=== PATIENT | female | born 1950 | race Caucasian/White ===

== ENCOUNTER 2018-06-17 18:01 | Observation (INO) ==
--- NOTE | 2018-06-17 18:37 | Emergency Department Note ---
Disposition Clinical Impression: TIA (transient ischemic attack) Chest pain Qualifiers: Chest pain type: unspecified Qualified Code(s): R07.9 - Chest pain, unspecified Disposition: Admitted As Inpatient Time of Disposition: 20:43 Neuro HPI - General Chief Complaint: ED Neuro Symptoms/Deficit Stated Complaint: unsteady gait (TIA Sunday) Time Seen by Provider: 06/17/18 18:25 Source: patient Mode of arrival: ambulatory Limitations: no limitations Nursing Notes Reviewed: Yes Vital Signs Reviewed: Yes - History of Present Illness HPI Narrative: Patient is a 68-year-old female with past medical history of TIAs in the past, no residual deficits, hypertension, diabetes. She presents here due to concern for possible TIA. She states that on Sunday, approximately 2 days ago, she had an episode of expressive aphasia. states that she had garbled speech and appeared to be confused. However, when he came to the patient and [place], she was able to communicate appropriately. She said that she had these symptoms for about 3 hours and then they resolved. She did not come to the hospital for further evaluation. denied noticing any focal weakness, facial drooping during that episode. Patient herself denied any changes in vision during that episode. She is not had any further episodes like this since Sunday. However, she does state that she has felt off balance with ambulation and swathe side to side when trying to walk since that episode. She also has had intermittent chest pain for the past 1-2 days. She states that yesterday, she developed chest pain that was described as a right-sided aching, no radiation, worsened with exertion, lasted for a few hours and then went away. She did not take any medications during that time. She also states that when she woke up this point, she had a right-sided chest pain again. It lasted for a few hours and then went away. Described similarly as above. She denies any previous history of heart attack or stent placement. She does have a pacemaker placed. - Related Data Allergies/Adverse Reactions: Allergies Allergy/AdvReac Type Severity Reaction Status Date / Time No Known Allergies Allergy Unverified 04/20/18 14:21 All systems ED: reviewed and negative except as stated. Constitutional: Denies: fever Cardiovascular: Reports: chest pain Respiratory: Reports: dyspnea Gastrointestinal: Denies: abdominal pain, nausea, vomiting, diarrhea Genitourinary: Denies: urgency, dysuria Neurological: Reports: other. Denies: headache, weakness, numbness, paresthesias Past Medical History - Past Medical History Attestation: Yes The following information was validated with the patient. Source: patient Medical history: Reports: diabetes, hypertension - Social History Smoking Status: Never smoker Smokeless Tobacco Status: No Alcohol use: Reports: none Physical Exam - General Limitations: no limitations General appearance: alert, in no apparent distress - Head Head exam: atraumatic, normocephalic, normal inspection - Eye Eye exam: Present: normal appearance, PERRL, EOMI - ENT ENT exam: normal exam, normal oropharynx, mucous membranes moist - Neck Neck exam: Present: normal inspection, full ROM, trachea midline - Chest Chest inspection: Present: normal inspection, symmetric chest wall rise - Respiratory Respiratory exam: Present: normal lung sounds bilaterally - Cardiovascular Cardiovascular exam: Present: regular rate, normal rhythm, normal heart sounds - Abdominal Exam Abdominal exam: Present: soft, Non-Tender. Absent: tenderness, distention, guarding, rebound, rigidity - Extremities Exam Extremities exam: Present: normal inspection, full ROM. Absent: tenderness, pedal edema - Neurological Exam Neurological exam: Present: alert, oriented X3, CN II-XII intact. Absent: motor sensory deficit - Expanded Neurological Exam Patient oriented to: Present: person, place, time Speech: Present: fluid speech Cranial nerves: EOM function (II, III, IV, ): Normal, facial sensation (V): Normal, facial palsy (VII): Normal, spinal accessory function (XI): Normal, tongue deviation (XII): Normal Cerebellar function: finger to nose: Normal Motor strength - LUE: 5/5 Motor strength - RUE: 5/5 Motor strength - LLE: 5/5 Motor strength - RLE: 5/5 Sensory exam upper extremity: light touch: Normal Sensory exam lower extremity: light touch: Normal Coma Scale Eye Opening: Spontaneous Coma Scale Motor Response: Obeys Commands Coma Scale Verbal Response: Oriented Coma Scale Total: 15 - Psychiatric Psychiatric exam: Present: normal affect, normal mood - Skin Skin exam: Present: warm, dry, intact, normal color Course Course Narrative: Vitals within normal limits. Physical exam shows no focal neurologic deficits. Heart regular rate and rhythm, lungs clear to auscultation, abdomen soft and nontender. Discuss obtaining a CT of the head noncontrast, basic blood work, troponin, EKG. Regardless of imaging, patient will need to be admitted for further stroke workup. She is to have an MRI but would probably benefit from Dopplers or CTA of the head and neck. She is agreeable with this plan. 20:41 EKG showed normal sinus rhythm with no acute ST changes. Troponin negative. labs show no major abnormalities. Chest x-ray negative for any acute cardio pulmonary process. Head CT negative for any acute intracranial process. Results were discussed with patient. We will admit for further care and workup for both TIA and chest pain. Aspirin given. Chest X-Ray 06/17/18 18:48 IMPRESSION: No acute cardiopulmonary abnormality. D/ / J Luis Hein MD / J Luis Hein MD Interpreting Provider: J Luis Hein MD Head CT 06/17/18 18:49 IMPRESSION: No acute intracranial abnormality. Periventricular and subcortical white matter low attenuation compatible with chronic microvascular ischemic changes. D/ / J Luis Hein MD / J Luis Hein MD Interpreting Provider: J Luis Hein MD Vital Signs Temperature 98.2 F 06/17/18 18:05 Pulse Rate 92 06/17/18 18:05 Respiratory Rate 15 06/17/18 18:05 Blood Pressure 148/70 06/17/18 18:05 O2 Sat by Pulse Oximetry 99 06/17/18 18:05 Temperature 98.2 F 06/17/18 18:45 Pulse Rate 80 06/17/18 20:40 Respiratory Rate 17 06/17/18 20:40 Blood Pressure 134/66 06/17/18 20:40 O2 Sat by Pulse Oximetry 99 06/17/18 20:40 Oxygen Delivery Oxygen Delivery Room Air Neuro Symptoms/Deficit - MDM Narrative Medical decision making narrative: Vitals within normal limits. Physical exam shows no focal neurologic deficits. Heart regular rate and rhythm, lungs clear to auscultation, abdomen soft and nontender. Discuss obtaining a CT of the head noncontrast, basic blood work, troponin, EKG. Regardless of imaging, patient will need to be admitted for further stroke workup. She is to have an MRI but would probably benefit from Dopplers or CTA of the head and neck. She is agreeable with this plan. 20:41 EKG showed normal sinus rhythm with no acute ST changes. Troponin negative. labs show no major abnormalities. Chest x-ray negative for any acute cardio pulmonary process. Head CT negative for any acute intracranial process. Results were discussed with patient. We will admit for further care and workup for both TIA and chest pain. Aspirin given. - Medical Records Medical records reviewed: Yes I reviewed the patient's medical records. - Lab Data Lab results reviewed: Yes I reviewed the patient's lab results. Result diagrams: 06/17/18 19:03 06/17/18 19:03 Lab Results 06/17/18 06/17/18 06/17/18 Range/Units 19:03 19:03 19:03 WBC 9.6 (4.3-11.1) K/mcL RBC 4.07 (3.82-4.97) M/mcL Hgb 12.4 (11.5-15.4) g/dL Hct 36.2 (35.3-44.9) % MCV 88.9 (83.0-100.0) fL MCH 30.5 (28.0-33.3) pg MCHC 34.3 (31.6-35.5) g/dL RDW 13.8 (11.5-14.5) % Plt Count 219 (140-400) K/mcL MPV 9.1 L (9.4-12.4) fL Immature Gran % 0.4 (0-4) % Seg Neutrophils % 58.9 % Lymphocytes % 26.6 % Monocytes % 9.4 % Eosinophils % 4.3 % Basophils % 0.4 % Neutrophils # 5.6 (1.6-8.9) K/mcL Lymphocytes # 2.6 (0.6-4.6) K/mcL Monocytes # 0.9 (0.0-1.3) K/mcL Eosinophils # 0.4 (0.0-0.6) K/mcL Basophils # 0.0 (0.0-0.2) K/mcL PT 11.1 (9.4-12.1) Seconds INR 1.0 APTT 28.4 (26.0-36.0) Seconds Sodium 139 (136-145) mEq/L Potassium 3.7 (3.5-5.1) mEq/L Chloride 105 (98-107) mEq/L Carbon Dioxide 24 (23-29) mEq/L BUN 16 (8-23) mg/dL Creatinine 0.78 (0.60-1.20) mg/dL Est GFR ( Amer) > 60 (> 60) Est GFR (Non-Af Amer) > 60 (> 60) BUN/Creatinine Ratio 21 (6-26) Glucose 154 H (70-105) mg/dL Calculated Osmolality 292 (280-300) Calcium 9.5 (8.6-10.3) mg/dL Total Bilirubin 0.4 (0.3-1.0) mg/dL AST 16 (13-39) Units/L ALT 14 (7-52) Units/L Alkaline Phosphatase 94 (34-104) Units/L Troponin I < 0.03 (< 0.04) ng/mL Serum Total Protein 6.3 L (6.4-8.9) g/dL Albumin 3.8 (3.5-5.7) g/dL Globulin 2.5 (2.4-3.5) g/dL Albumin/Globulin Ratio 1.5 (1.1-2.2) Urine Color (Yellow) Urine Clarity (Clear) Urine pH (5.0-8.0) pH Units Ur Specific [place] (1.010-1.025) Urine Protein (Neg-Trace) mg/dL Urine Glucose (UA) (Normal) mg/dL Urine Ketones (Negative) mg/dL Urine Blood (Negative) Urine Nitrite (Negative) Urine Bilirubin (Negative) Urine Urobilinogen (Normal) mg/dL Ur Leukocyte Esterase (Negative) Ur Culture Indicated? (NO) 06/17/18 Range/Units 20:29 WBC (4.3-11.1) K/mcL RBC (3.82-4.97) M/mcL Hgb (11.5-15.4) g/dL Hct (35.3-44.9) % MCV (83.0-100.0) fL MCH (28.0-33.3) pg MCHC (31.6-35.5) g/dL RDW (11.5-14.5) % Plt Count (140-400) K/mcL MPV (9.4-12.4) fL Immature Gran % (0-4) % Seg Neutrophils % % Lymphocytes % % Monocytes % % Eosinophils % % Basophils % % Neutrophils # (1.6-8.9) K/mcL Lymphocytes # (0.6-4.6) K/mcL Monocytes # (0.0-1.3) K/mcL Eosinophils # (0.0-0.6) K/mcL Basophils # (0.0-0.2) K/mcL PT (9.4-12.1) Seconds INR APTT (26.0-36.0) Seconds Sodium (136-145) mEq/L Potassium (3.5-5.1) mEq/L Chloride (98-107) mEq/L Carbon Dioxide (23-29) mEq/L BUN (8-23) mg/dL Creatinine (0.60-1.20) mg/dL Est GFR ( Amer) (> 60) Est GFR (Non-Af Amer) (> 60) BUN/Creatinine Ratio (6-26) Glucose (70-105) mg/dL Calculated Osmolality (280-300) Calcium (8.6-10.3) mg/dL Total Bilirubin (0.3-1.0) mg/dL AST (13-39) Units/L ALT (7-52) Units/L Alkaline Phosphatase (34-104) Units/L Troponin I (< 0.04) ng/mL Serum Total Protein (6.4-8.9) g/dL Albumin (3.5-5.7) g/dL Globulin (2.4-3.5) g/dL Albumin/Globulin Ratio (1.1-2.2) Urine Color Yellow (Yellow) Urine Clarity Clear (Clear) Urine pH 6.5 (5.0-8.0) pH Units Ur Specific [place] 1.007 L (1.010-1.025) Urine Protein Negative (Neg-Trace) mg/dL Urine Glucose (UA) Normal (Normal) mg/dL Urine Ketones Negative (Negative) mg/dL Urine Blood Negative (Negative) Urine Nitrite Negative (Negative) Urine Bilirubin Negative (Negative) Urine Urobilinogen Normal (Normal) mg/dL Ur Leukocyte Esterase Negative (Negative) Ur Culture Indicated? NO (NO) - Radiology Data Radiology results reviewed: Yes I reviewed the patient's radiology results. - EKG Data EKG attestation: Yes I reviewed and interpreted this EKG. EKG results narrative: 06/17/20 1818:42. Normal sinus rhythm. Heart rate 82. MA 145. QRS 91. QTC 463. Normal axis. No acute ST elevation or depression. NIH Stroke Scale - Level of Consciousness LOC: Alert - LOC Questions LOC Questions: Answers both correctly - LOC Commands LOC Commands: Performs both correctly - Best Gaze Best Gaze: Normal - Visual Visual: No visual loss - Facial Palsy Facial Palsy: Normal - Motor Arms Motor Arm-Left: No drift for 10 seconds Motor Arm-Right: No drift for 10 seconds - Motor Legs Motor Leg-Left: No drift for 5 seconds Motor Leg-Right: No drift for 5 seconds - Limb Ataxia Limb Ataxia: Absent of affected limb too weak to perform exam - Sensory Sensory: Normal - Best Language Best Language: No aphasia - Dysarthria Dysarthria: Normal - Extinction and Inattention Extinction and Inattention: Normal - NIHSS Total Score NIHSS Total Score: 0 S.B.A.R. - S.B.A.R. Situation: Demographics, MOA Background: Presenting Complaint, Relevant PMH, Meds, & Allergies Assessment: Vital Signs, Course and respsone to treatment, Exam Concerns, Patient/Family Expectation, Pertinant Lab Results, Outstanding Labs (pending UA) Recommendation: Barrier(s) to disposition, Recommendation based on pending studies, treatments, or consults S.B.A.R. Report Given to: Dr. Alva Attestation Statement - Attestation Attestation: I, Gelacio Ferrera, examined this patient and my medical decision-making was reviewed with the COLLEGE INSTRUCTOR/PA/Advanced Practice Nurse/Resident Physician. I agree with the documented findings, disposition and treatment plan as described except to the extent set forth below. 68-year-old female presents emergency Department with concerns of an unsteady gait. Patient states she had an episode of expressive aphasia and chest pain over the weekend. Patient states the expressive aphasia resolved after a time of 3 hours however she then developed difficulty with ambulation. The difficulty with ambulation persisted and her primary care provider recommended she be evaluated in the emergency department. Patient states the chest pain was located in the center of her chest, did not radiate, was not associated with diaphoresis or shortness of breath or palpitations. No pain in the emergency department. CT of the head did not show evidence of intracranial hemorrhage however it showed changes consistent with chronic microvascular ischemia. There are no focal neurologic deficits noted on her exam. She will be admitted to the hospitalist for further care and evaluation of possible CVA as well as for further investigation into her chest pain.
[2018-06-17 20:00] LABS: Basophils % 0.4 %; Eosinophils # 0.4 K/mcL (0.0-0.6); Eosinophils % 4.3 %; Hematocrit 36.2 % (35.3-44.9); Hemoglobin 12.4 g/dL (11.5-15.4); Immature Granulocytes % 0.4 % (0-4); Lymphocytes # 2.6 K/mcL (0.6-4.6); Lymphocytes % 26.6 %; Mean Corpuscular HGB Conc 34.3 g/dL (31.6-35.5); Mean Corpuscular Hemoglobin 30.5 pg (28.0-33.3); Mean Corpuscular Volume 88.9 fL (83.0-100.0); Mean Platelet Volume 9.1 fL (9.4-12.4); Monocytes # 0.9 K/mcL (0.0-1.3); Monocytes % 9.4 %; Neutrophils # 5.6 K/mcL (1.6-8.9); Platelet Count 219 K/mcL (140-400); Red Blood Count 4.07 M/mcL (3.82-4.97); Red Cell Distribution Width 13.8 % (11.5-14.5); Segmented Neutrophils % 58.9 %
[2018-06-17 20:15] LABS: Prothrombin Time 11.1 Seconds (9.4-12.1)
[2018-06-17 20:19] LABS: Activated Partial Thrombo Time 28.4 Seconds (26.0-36.0)
[2018-06-17 20:20] LABS: Troponin I < 0.03 ng/mL (< 0.04)
[2018-06-17 20:21] LABS: Alanine Aminotransferase 14 Units/L (7-52); Albumin 3.8 g/dL (3.5-5.7); Albumin/Globulin Ratio 1.5 (1.1-2.2); Alkaline Phosphatase 94 Units/L (34-104); Aspartate Amino Transferase 16 Units/L (13-39); BUN/Creatinine Ratio 21 (6-26); Bilirubin,Total 0.4 mg/dL (0.3-1.0); Blood Urea Nitrogen 16 mg/dL (8-23); Calcium 9.5 mg/dL (8.6-10.3); Carbon Dioxide 24 mEq/L (23-29); Chloride 105 mEq/L (98-107); Globulin 2.5 g/dL (2.4-3.5); Glucose 154 mg/dL (70-105); Osmolality,Calculated 292 (280-300); Potassium 3.7 mEq/L (3.5-5.1); Sodium 139 mEq/L (136-145); Total Protein 6.3 g/dL (6.4-8.9); eGFR For Non-African Americans > 60 (> 60)
[2018-06-17 20:42] LABS: Bilirubin,Urine Negative (Negative); Blood,Urine Negative (Negative); Clarity,Urine Clear (Clear); Color,Urine Yellow (Yellow); Glucose,Urine (UA) Normal (Normal); Ketones,Urine Negative (Negative); Leukocyte Esterase,Urine Negative (Negative); Nitrite,Urine Negative (Negative); PH,Urine 6.5 pH Units (5.0-8.0); Protein,Urine Negative (Neg-Trace); Specific Gravity,Urine 1.007 (1.010-1.025); Urobilinogen,Urine Normal (Normal)
[2018-06-17] MEDS ORDERED: Aspirin 325 MG TABLET PO ONE (20:42)
[2018-06-18] MEDS ORDERED: Naloxone 0.4 MG/ML INJ IVP PRN (09:19)
[2018-06-18] MEDS ORDERED: Nitroglycerin Spray 4.9 GM BOTTLE SL PRN (09:21)
[2018-06-18] MEDS ORDERED: Metoprolol XL (24 HR) Succ 25 MG TAB.ER.24H PO SCH ×2 (09:45→22:30)
--- NOTE | 2018-06-18 10:10 | Internal Med History&Physical ---
Date of Encounter: 06/18/18 Time of Encounter: 10:07 Internal Medicine - H&P: HPI Chief complaint: Difficulty speaking and intermittent unsteady gait Plans for Post Hospital Care: Home History of present illness: Ms. Smith is a 68 year old female with a past medical history of pacemaker, multiple TIAs in the past, coronary artery disease status post 8 stents in the past with a history of prior strokes who comes in with TIA type symptoms which occurred roughly about 3 days ago. The patient states that she was in her usual health and started having symptoms consistent with word finding difficulty which lasted for roughly 3 hours roughly 3 days ago and resolved completely by the time she presented to the ER. She did mention that she has been having some difficulty in walking and has been swelling to one particular direction for the last few days as well-this symptom is also completely resolved at this time. She tells me that she was evaluated by neurology several years ago and was found to have multiple strokes in her brain and since then she has been on aspirin. She also has been on brillinta since she had her cardiac issues in the last year and a half and see the cart attendant in [place] for the same. She denies any headaches or dizziness at this time. All her symptoms are currently gone but she is very concerned about recurrence of strokes and wants management done. She also endorsed intermittent chest pain on the right side which was graded as 5/10 sharp described as possible pulled muscle which has currently resolved. There was no exertional component that she endorses with the chest pain. She denies any shortness of breath at this time. No fevers no chills no sick contacts Past Med Surg Social Fam HX - Past Medical History Medical history: asthma, coronary artery disease, diabetes, fibromyalgia, hypertension, TIA Additional medical history: thyroid disease Psychiatric history: anxiety, depression - Past Surgical History Surgical History: cholecystectomy, coronary bypass (CABG), hysterectomy - Social History Smoking Status: Never smoker Smokeless Tobacco Status: No Alcohol use: none Drug use: none - Family History Father Living Status: Hx Family Cancer: Yes Mother Living Status: Hx Family Cardiac Disorders: Yes Brother Hx Family Cardiac Disorders: Yes Internal Medicine - H&P: Meds ALPRAZolam [Xanax 0.5 MG Tablet] 0.5 mg PO TID PRN 06/17/18 [History] Albuterol Sulfate [Proair Hfa] 2 puff IH Q4H PRN 06/17/18 [History] Aspirin Enteric Coated [Aspirin EC] 81 mg PO DAILY 06/17/18 [History] Calcium Carbonate/Vitamin D3 [[place] 250 mg + Vit D Tb] 1 tab PO DAILY [History] Cholecalciferol (D-3) [Vitamin D] 2,000 unit PO DAILY 06/17/18 [History] Cyclobenzaprine [Flexeril] 5 mg PO BID PRN 06/17/18 [History] Docusate [Colace] 100 mg PO BID 06/17/18 [History] Fluticasone/Salmeterol [Advair Hfa 115-21 Mcg Inhaler] 1 puff IH BID 06/17/18 [ History] Furosemide [Lasix] 40 mg PO DAILY 06/17/18 [History] Gabapentin [Neurontin] 300 mg PO TID 06/17/18 [History] HYDROcodone/Acet 10/325 mg [[place] 10-325 mg] 1 tab PO QID PRN 06/17/18 [History] Ibandronate Sodium [Boniva] 150 mg PO QMONTH 06/17/18 [History] Levothyroxine [Synthroid] 100 mcg PO 0630 06/17/18 [History] Losartan/Hydrochlorothiazide [Losartan-Hctz 50-12.5 mg Tab] 1 tab PO DAILY 06/17 [History] Meloxicam [Mobic] 15 mg PO DAILY 06/17/18 [History] Metoprolol Succinate [Toprol Xl] 25 mg PO DAILY 06/17/18 [History] Multivitamin [One Daily Essential] 1 tab PO DAILY 06/17/18 [History] Nitroglycerin [Nitrolingual] 4.9 gm TL Q5MIN PRN 06/17/18 [History] [place]-3 Fatty Acids [Fish Oil] 300 mg PO DAILY 06/17/18 [History] Omeprazole [PriLOSEC] 40 mg PO DAILY 06/17/18 [History] Potassium Chloride 20 meq PO DAILY 06/17/18 [History] Ropinirole HCl [Requip] 0.5 mg PO BID 06/17/18 [History] Simvastatin [Zocor] 40 mg PO HS 06/17/18 [History] Ticagrelor [Brilinta] 90 mg PO BID 06/17/18 [History] Trazodone HCl 150 mg PO HS 06/17/18 [History] Venlafaxine HCl [Venlafaxine HCl ER] 150 mg PO DAILY 06/17/18 [History] hydrOXYzine HCl [Hydroxyzine HCl] 25 mg PO QID PRN 06/17/18 [History] 3 Allergy/AdvReac Type Severity Reaction Status Date / Time No Known Allergies Allergy Verified 06/17/18 20:55 All Systems PM: A 10-system review of systems was performed and is negative for pertinent findings except as documented above in the HPI. - Constitutional Vitals: Temp Pulse Resp BP Pulse Ox 98.3 F 87 16 128/75 99 06/18/18 07:04 06/18/18 07:04 06/18/18 07:04 06/18/18 07:04 06/18/18 07:04 Exam: GENERAL: Alert, moderate distress, cooperative EYES: PERRLA, EOMI EARS: External ears normal, canals clear OROPHARYNX: Lips, mucosa, and tongue normal. Teeth and gums normal. Oropharynx normal. NECK: No jugulovenous distention, No carotid bruits appreciated on auscultation , Carotid pulse normal contour, Supple LUNGS: Lungs clear to auscultation, Good diaphragmatic excursion CARDIAC: Midline scar consistent with prior heart surgery, Normal S1 and S2; no rubs, murmurs, or gallops, pacemaker site is nontender ABDOMEN: Abdomen soft, non-tender, BS normal, No masses or organomegaly EXTREMITIES: Extremities normal, no deformities, edema, clubbing or skin discoloration. Good capillary refill., No ulcers NEURO: Gait normal. Reflexes normal and symmetric. Sensation grossly intact, Cranial nerves II-XII intact PULSES: 2+ radial, 2+ carotid Rest of the exam is non contributory Internal Med - H&P Results - Labs CBC & Chem 7: 06/17/18 19:03 06/17/18 19:03 - Diagnostic Studies CT scan - head Status: image reviewed by me (Chronic microvascular ischemic changes) - Assessment and plan (1) TIA (transient ischemic attack) Current Visit: Yes Status: Acute Assessment and plan: Patient has had prior history of stroke with imaging evidence of chronic microvascular ischemic changes. She is already on aspirin and will in type and has been taking statins without any break. Her symptoms are concerning for TIA and I will check an echo and carotid duplex again. She does not get a carotid duplex 2 years ago was negative for any critical stenosis Her pacemaker is non-compatible with an MRI and would have been the best modality to diagnose new strokes. I am going to consult neurology for their opinion regarding what imaging modality to choose Continue beta blockers and statins for now and monitor neuro checks every 4-6 hours. She will also be placed on telemetry monitoring. She also tells me that her pacemaker was evaluated roughly about a year ago and everything was good. (2) Chest pain Current Visit: Yes Status: Acute Assessment and plan: Sounds like non-cardiac. For completion of workup , I will place on telemetry monitoring and check serial troponins. Initial EKG is nonsuggestive of ischemic changes Qualifiers: Chest pain type: intercostal pain Qualified Code(s): R07.82 - Intercostal pain - Time Spent With Patient Total time spent is greater than 50% in coordination of care (as documented) at patient's floor/unit and/or counseling patient: Greater than 35 minutes
[2018-06-18] MEDS: Furosemide 40 MG TABLET PO SCH (10:32)
[2018-06-18] MEDS: Aspirin Enteric Coated 81 MG Tablet PO SCH (10:32)
[2018-06-18] MEDS: Losartan/HCTZ 50-12.5 TABLET PO SCH (10:32)
[2018-06-18] MEDS: Gabapentin 300 MG CAPSULE PO SCH ×3 (10:32→21:35)
[2018-06-18] MEDS: *HR* Ticagrelor 90 MG TABLET PO SCH ×2 (10:33→21:35)
[2018-06-18] MEDS: Venlafaxine XR (24 HR) 150 MG CAP.ER.24H PO SCH (10:33)
[2018-06-18] MEDS: rOPINIRole 0.25 MG TABLET PO SCH ×2 (10:35→21:35)
[2018-06-18] MEDS: ALPRAZolam 0.5 MG TABLET PO PRN ×2 (10:43→21:35)
[2018-06-18] MEDS ORDERED: Isovue-370 500 ML INFUS..BTL IV ONE (12:36)
--- NOTE | 2018-06-18 13:31 | Neurology - Consult Note ---
Date of Encounter: 06/18/18 Time of Encounter: 13:28 Assessment and Plan (1) TIA (transient ischemic attack) Current Visit: Yes Status: Acute This patient of 68 year old with multiple risk factors especially CAD, s/p multiple stent placement, HTN obesity who developed transient speech difficulty lasting 3 hours in duration with total resolution. Is already on Aspirin and Ticargrelor dual antiplatelet therapy. Can not get MRI scanning due to pacer placement. Agree with stroke work up including CTA of neck and neck, echocardiography and carotid artery duplex study. This is so far only episode of such presentation, although she has had 'blank movements' in the past. Will follow up with testing once available for review. Please continue medical and supportive care History of Present Illness Chief complaint: speech difficulty HPI: Ms. Smith is a 68 year old female with PMH significant for HTN, DM, obesity, CAD, s/p stent placement, pacer placement and previous history of TIAs who developed transient speech difficulty lasting about 3 hours. The spell was witnessed by her who states that it was not just slurred speech but she could not speak. Symptoms lasted 3 hours and then totally resolved. She states that she has had TIA's before only that she goes into a blank for few seconds but nothing like what she had yesterday. She has pace maker and could not get MRI. She is on Aspirin and Ticargrelor. Initial CT of head showed no intracranial abnormality. Past Med Surg Social Fam HX - Past Medical History Medical history: asthma, coronary artery disease, diabetes, fibromyalgia, hypertension, TIA Additional medical history: thyroid disease Psychiatric history: anxiety, depression - Past Surgical History Surgical History: cholecystectomy, coronary bypass (CABG), hysterectomy - Social History Smoking Status: Never smoker Smokeless Tobacco Status: No Alcohol use: none Drug use: none - Family History Father Living Status: Hx Family Cancer: Yes Mother Living Status: Hx Family Cardiac Disorders: Yes Brother Hx Family Cardiac Disorders: Yes Medications and Allergies ALPRAZolam [Xanax 0.5 MG Tablet] 0.5 mg PO TID PRN 06/17/18 [History] Albuterol Sulfate [Proair Hfa] 2 puff IH Q4H PRN 06/17/18 [History] Aspirin Enteric Coated [Aspirin EC] 81 mg PO DAILY 06/17/18 [History] Calcium Carbonate/Vitamin D3 [[place] 250 mg + Vit D Tb] 1 tab PO DAILY [History] Cholecalciferol (D-3) [Vitamin D] 2,000 unit PO DAILY 06/17/18 [History] Cyclobenzaprine [Flexeril] 5 mg PO BID PRN 06/17/18 [History] Docusate [Colace] 100 mg PO BID 06/17/18 [History] Fluticasone/Salmeterol [Advair Hfa 115-21 Mcg Inhaler] 1 puff IH BID 06/17/18 [ History] Furosemide [Lasix] 40 mg PO DAILY 06/17/18 [History] Gabapentin [Neurontin] 300 mg PO TID 06/17/18 [History] HYDROcodone/Acet 10/325 mg [[place] 10-325 mg] 1 tab PO QID PRN 06/17/18 [History] Ibandronate Sodium [Boniva] 150 mg PO QMONTH 06/17/18 [History] Levothyroxine [Synthroid] 100 mcg PO 0630 06/17/18 [History] Losartan/Hydrochlorothiazide [Losartan-Hctz 50-12.5 mg Tab] 1 tab PO DAILY 06/17 [History] Meloxicam [Mobic] 15 mg PO DAILY 06/17/18 [History] Metoprolol Succinate [Toprol Xl] 25 mg PO DAILY 06/17/18 [History] Multivitamin [One Daily Essential] 1 tab PO DAILY 06/17/18 [History] Nitroglycerin [Nitrolingual] 1 - 2 spray SL Q5MIN PRN 06/17/18 [History] [place]-3 Fatty Acids [Fish Oil] 300 mg PO DAILY 06/17/18 [History] Omeprazole [PriLOSEC] 40 mg PO DAILY 06/17/18 [History] Potassium Chloride 20 meq PO DAILY 06/17/18 [History] Ropinirole HCl [Requip] 0.5 mg PO BID 06/17/18 [History] Simvastatin [Zocor] 40 mg PO HS 06/17/18 [History] Ticagrelor [Brilinta] 90 mg PO BID 06/17/18 [History] Trazodone HCl 150 mg PO HS 06/17/18 [History] Venlafaxine HCl [Venlafaxine HCl ER] 150 mg PO DAILY 06/17/18 [History] hydrOXYzine HCl [Hydroxyzine HCl] 25 mg PO QID PRN 06/17/18 [History] 3 Allergy/AdvReac Type Severity Reaction Status Date / Time No Known Allergies Allergy Verified 06/17/18 20:55 All Systems: The remainder of the systems were reviewed and are negative Physical Examination - Vital Signs Vital Signs: Initial Vital Signs Temp Pulse Resp BP Pulse Ox 98.2 F 92 15 148/70 99 06/17/18 18:05 06/17/18 18:05 06/17/18 18:05 06/17/18 18:05 06/17/18 18:05 - Constitutional General appearance: comfortable - Neurologic Detailed motor examination: full strength in all major muscle groups Motor examination - right side: 5/5: deltoids, biceps, triceps, wrist flexion, wrist extension, class a regional drivers, hip flexors, tibialis Anterior, quadriceps, toe extension (EHL), plantarflexion Motor examination - left side: 5/5: deltoids, biceps, triceps, wrist flexion, wrist extension, hip flexors, class a regional drivers, quadriceps, tibialis Anterior, toe extension (EHL), plantarflexion Posture: other (None) Reflex and gait examination: intact Reflexes: Biceps: 2+, Triceps: 2+, Brachioradialis: 2+, Patella: 2+, Achilles: 2 + Mental Status Examination: awake, alert, oriented to person, oriented to place, oriented to time, follows commands appropriately, answers questions appropriately, no agnosia, no aphasia, no aproxia Cranial nerve examination: PERRL, EOMI, visual burns intact, corneal reflexes brisk symmetrically, sensory to face intact, mastication intact, no facial asymmetry is present, no dysarthria, hearing is intact symmetrically, soft palate elevates bilaterally upon phonation, gag reflex intact, flexes SCM and trapezius muscles symmetrically with full power, tongue protrudes midline, no atrophy or facial fasiculations present Cerebellar examination: no dysmetria, performs finger to nose and heel to aponte symmetrically without ataxia, no gait ataxia, no truncal ataxia, no difficulty with rapid alternating movements Results - Laboratory Findings CBC and BMP: 06/17/18 19:03 06/17/18 19:03 Abnormal lab findings: Abnormal lab results MPV 9.1 fL (9.4-12.4) L 06/17/18 19:03 Glucose 154 mg/dL (70-105) H 06/17/18 19:03 POC Glucose 135 mg/dL (70-99) H 06/17/18 22:33 Serum Total Protein 6.3 g/dL (6.4-8.9) L 06/17/18 19:03 Ur Specific [place] 1.007 (1.010-1.025) L 06/17/18 20:29 Consult Discharge Plan - Plan Referrals: Antionette Tompkins DO [Primary Care Provider] -
[2018-06-18] MEDS ORDERED: *HR* HYDROcodone/Acet 10/325 mg TABLET PO PRN (13:54)
[2018-06-18] MEDS ORDERED: Gabapentin 300 MG CAPSULE PO SCH (15:00)
[2018-06-18] MEDS: *HR* Heparin 5,000 UNIT/ML VIAL SQ SCH (17:24)
[2018-06-18] MEDS ORDERED: *HR* Ticagrelor 90 MG TABLET PO SCH (21:00)
[2018-06-18] MEDS ORDERED: NON-FORMULARY MEDICATION 1 EACH EACH (Ropinirole Hcl [Requip] 0.5 MG) PO SCH (21:00)
[2018-06-18] MEDS: Budesonide/Formoterol 80/4.5 MDI IH SCH (21:56)
[2018-06-18] MEDS ORDERED: traZODone 50 MG TABLET PO SCH (22:00)
[2018-06-19] MEDS: *HR* Heparin 5,000 UNIT/ML VIAL SQ SCH (05:09)
[2018-06-19 06:13] LABS: Basophils % 0.5 %; Eosinophils # 0.6 K/mcL (0.0-0.6); Eosinophils % 6.8 %; Hematocrit 37.7 % (35.3-44.9); Hemoglobin 12.7 g/dL (11.5-15.4); Immature Granulocytes % 0.3 % (0-4); Lymphocytes # 2.3 K/mcL (0.6-4.6); Lymphocytes % 25.6 %; Mean Corpuscular HGB Conc 33.7 g/dL (31.6-35.5); Mean Corpuscular Volume 88.9 fL (83.0-100.0); Mean Platelet Volume 8.7 fL (9.4-12.4); Monocytes # 0.9 K/mcL (0.0-1.3); Monocytes % 10.5 %; Platelet Count 215 K/mcL (140-400); Red Blood Count 4.24 M/mcL (3.82-4.97); Red Cell Distribution Width 13.9 % (11.5-14.5); Segmented Neutrophils % 56.3 %
[2018-06-19 06:34] LABS: BUN/Creatinine Ratio 19 (6-26); Blood Urea Nitrogen 15 mg/dL (8-23); Calcium 9.6 mg/dL (8.6-10.3); Carbon Dioxide 24 mEq/L (23-29); Chloride 105 mEq/L (98-107); Cholesterol 156 mg/dL (< 200); Glucose 157 mg/dL (70-105); HDL Cholesterol 39 mg/dL (40-59); LDL Cholesterol,Calculated 74 mg/dL (0-99); Osmolality,Calculated 288 (280-300); Potassium 3.5 mEq/L (3.5-5.1); Sodium 137 mEq/L (136-145); Triglycerides 214 mg/dL (< 150); eGFR For Non-African Americans > 60 (> 60)
[2018-06-19 06:46] VITALS: BP 129/78
[2018-06-19] MEDS: Budesonide/Formoterol 80/4.5 MDI IH SCH (07:51)
[2018-06-19] MEDS: Furosemide 40 MG TABLET PO SCH (08:33)
[2018-06-19] MEDS: Aspirin Enteric Coated 81 MG Tablet PO SCH (08:33)
[2018-06-19] MEDS: *HR* Ticagrelor 90 MG TABLET PO SCH (08:34)
[2018-06-19] MEDS: Venlafaxine XR (24 HR) 150 MG CAP.ER.24H PO SCH (08:34)
[2018-06-19] MEDS: Losartan/HCTZ 50-12.5 TABLET PO SCH (08:34)
[2018-06-19] MEDS: Gabapentin 300 MG CAPSULE PO SCH (08:34)
[2018-06-19] MEDS: rOPINIRole 0.25 MG TABLET PO SCH (08:35)
[2018-06-19] MEDS: ALPRAZolam 0.5 MG TABLET PO PRN (08:38)
[2018-06-19] MEDS ORDERED: Venlafaxine XR (24 HR) 150 MG CAP.ER.24H PO SCH (09:00)
[2018-06-19] MEDS ORDERED: Metoprolol XL (24 HR) Succ 25 MG TAB.ER.24H PO SCH (09:00)
[2018-06-19] MEDS ORDERED: NON-FORMULARY MEDICATION 1 EACH EACH (Meloxicam [Mobic] 15 MG) PO SCH (09:00)
[2018-06-19] MEDS ORDERED: NON-FORMULARY MEDICATION 1 EACH EACH (Omeprazole [Prilosec] 40 MG) PO SCH (09:00)
[2018-06-19] MEDS ORDERED: Furosemide 40 MG TABLET PO SCH (09:00)
[2018-06-19] MEDS ORDERED: Aspirin Enteric Coated 81 MG Tablet PO SCH (09:00)
[2018-06-19] MEDS ORDERED: Losartan/HCTZ 50-12.5 TABLET PO SCH (09:00)
--- NOTE | 2018-06-19 09:11 | Discharge Summary ---
- NOTES TO OUTPATIENT PROVIDER Notes to Outpatient Provider: Routine follow-up with your primary care doctor within 1-2 weeks. Date of Encounter: 06/19/18 Time of Encounter: 09:07 - Discharge Diagnosis (1) TIA (transient ischemic attack) Priority: Primary Status: Resolved (2) Chest pain Priority: Secondary Status: Resolved Qualifiers: Chest pain type: intercostal pain Qualified Code(s): R07.82 - Intercostal pain (3) Diabetes Priority: Secondary Status: Chronic Qualifiers: Diabetes mellitus type: type 2 Diabetes mellitus long term care pharmacist insulin use: unspecified penitentiary insulin use status Diabetes mellitus complication status : with unspecified complications Qualified Code(s): E11.8 - Type 2 diabetes mellitus with unspecified complications (4) Hypertension Priority: Secondary Status: Chronic Qualifiers: Hypertension type: unspecified Qualified Code(s): I10 - Essential (primary ) hypertension (5) CAD (coronary artery disease) Priority: Secondary Status: Chronic Qualifiers: Coronary Disease-Associated Artery/Lesion type: unspecified vessel or lesion type [place] vs. transplanted heart: unspecified whether [place] or transplanted heart Associated angina: angina presence unspecified Qualified Code(s): I25.10 - Atherosclerotic heart disease of [place] coronary artery without angina pectoris (6) Carotid stenosis Priority: Secondary Status: Chronic Assessment and Plan: Neck CTA: 50% focal stenosis of the V4 segment of the right vertebral artery. Otherwise, no acute abnormality or flow-limiting stenosis in the remainder of the major intracranial arteries. 50% focal stenosis of the origin of the left internal carotid artery. No flow limiting stenosis in the remainder of the major arteries of the neck. Qualifiers: Laterality: left Qualified Code(s): I65.22 - Occlusion and stenosis of left carotid artery Hospital course: Ms. Smith is a 68 year old female past medical history significant for asthma, coronary artery disease, diabetes, fibromyalgia, hypertension, TIA. Patient presented to the emergency room on Sunday night complaining of difficulty finding words which happened on Sunday night, and had resolved at the time of her presentation to the emergency room. She denied focal weakness or seizure- like activity. Patient also reported intermittent right-sided chest pain. Patient workup for rule out CVA, CTA of the brain done resulted as no acute intracranial abnormality. CTA of the neck resulted as no acute intracranial abnormality. Patient diagnosed with a TIA, recommended to to continue aspirin and statin. Patient on Brilinta to for history of coronary artery disease with stent placement. Ischemic workup for chest pain, was negative would not elevation in troponins. Patient is hemodynamically stable to be discharged home. - Time Spent with Patient Total time spent providing and/or coordinating discharge services: Less than 30 minutes - Discharge Medications Home Medications: ALPRAZolam [Xanax 0.5 MG Tablet] 0.5 mg PO TID PRN 06/17/18 [History] Albuterol Sulfate [Proair Hfa] 2 puff IH Q4H PRN 06/17/18 [History] Aspirin Enteric Coated [Aspirin EC] 81 mg PO DAILY 06/17/18 [History] Calcium Carbonate/Vitamin D3 [[place] 250 mg + Vit D Tb] 1 tab PO DAILY [History] Cholecalciferol (D-3) [Vitamin D] 2,000 unit PO DAILY 06/17/18 [History] Cyclobenzaprine [Flexeril] 5 mg PO BID PRN 06/17/18 [History] Docusate [Colace] 100 mg PO BID 06/17/18 [History] Fluticasone/Salmeterol [Advair Hfa 115-21 Mcg Inhaler] 1 puff IH BID 06/17/18 [ History] Furosemide [Lasix] 40 mg PO DAILY 06/17/18 [History] Gabapentin [Neurontin] 300 mg PO TID 06/17/18 [History] HYDROcodone/Acet 10/325 mg [[place] 10-325 mg] 1 tab PO QID PRN 06/17/18 [History] Ibandronate Sodium [Boniva] 150 mg PO QMONTH 06/17/18 [History] Levothyroxine [Synthroid] 100 mcg PO 0630 06/17/18 [History] Losartan/Hydrochlorothiazide [Losartan-Hctz 50-12.5 mg Tab] 1 tab PO DAILY 06/17 [History] Meloxicam [Mobic] 15 mg PO DAILY 06/17/18 [History] Metoprolol Succinate [Toprol Xl] 50 mg PO HS 06/17/18 [History] Multivitamin [One Daily Essential] 1 tab PO DAILY 06/17/18 [History] Nitroglycerin [Nitrolingual] 1 - 2 spray SL Q5MIN PRN 06/17/18 [History] [place]-3 Fatty Acids [Fish Oil] 300 mg PO DAILY 06/17/18 [History] Omeprazole [PriLOSEC] 40 mg PO DAILY 06/17/18 [History] Potassium Chloride 20 meq PO DAILY 06/17/18 [History] Ropinirole HCl [Requip] 0.5 mg PO BID 06/17/18 [History] Simvastatin [Zocor] 40 mg PO HS 06/17/18 [History] Ticagrelor [Brilinta] 90 mg PO BID 06/17/18 [History] Trazodone HCl 150 mg PO HS 06/17/18 [History] Venlafaxine HCl [Venlafaxine HCl ER] 150 mg PO DAILY 06/17/18 [History] hydrOXYzine HCl [Hydroxyzine HCl] 25 mg PO QID PRN 06/17/18 [History] Allergies/Adverse Reactions: 3 Allergy/AdvReac Type Severity Reaction Status Date / Time No Known Allergies Allergy Verified 06/17/18 20:55 Date of admission: 06/17/18 20:48 Primary care physician: Antionette Tompkins DO Consults: 06/18/18 09:20 Consult to Neurology [CONS] Routine Consulting Provider: Neurology [facility] Reason for Consult: TIA Time Notified: 09:20 Call Completed: Yes - Constitutional Vitals: Temp Pulse Resp BP Pulse Ox 98.3 F 78 16 129/78 97 06/19/18 06:45 06/19/18 06:45 06/19/18 07:51 06/19/18 06:45 06/19/18 07:51 Exam: General: Patient is alert, oriented, no acute distress. Head: atraumatic, normocephalic, Eye: normal appearance, PERRL, no scleral icterus, no conjunctival injection Respiratory: Good respiratory effort. Clear lung burns to auscultation bilaterally, no wheezing, crackles or rales. Cardiovascular: RRR, normal s1 and s2, No rubs, gallops, or murmors. Abdomen: Bowel sounds present normoactive x-4 quadrants. Abdomen is soft, nondistended. No guarding or rebound. Musculoskeletal: Spontaneously moving all extremities. no edema, no calf tenderness. Mild intentional tremors in the upper extremity. Strength is 5 out of 5 in the upper and lower extremity. Skin: warm, dry, intact. Neuro: Alert and oriented x4. Sensation light touch intact. Cranial nerves 2- 12 is intact. Not aphasic. Psych: Patient's affect is normal - Patient Status Disposition: Home, Self-Care Condition: Good Functional capacity at discharge: independent ambulation Overall status at discharge: patient is back to baseline - Discharge Instructions Instructions: Transient Ischemic Attack (DC) Follow Up With: Antionette Tompkins DO [Primary Care Provider] - 06/27/18 11:30 am - Diet and Activity Activity: resume usual activities as tolerated Diet: diabetic diet
--- NOTE | 2018-06-22 11:49 | Electrocardiograph Report ---
[address] [place] [address] Test Date: 2018-06-17 Pat Name: Evie Smith Department: [id number] Room: 3B Gender: F Prekindergarten Teacher: : 1950 Requested By: Craig Xiong Order Number: [id number] Reading MD: Moi Pedraza Measurements Intervals [place] Rate: 82 P: 6 NH: 145 QRS: 38 QRSD: 91 T: 68 QT: 396 QTc: 463 Interpretive Statements Sinus rhythm Electronically Signed On 06-22-2018 11:48:02 EDT by Moi Pedraza
== END 2018-06-19 10:46 | disposition home or self-care (01) ==
LOC: 3BNU 18:01 → EMEROOARM 18:01 → SUATTDRO 20:48 → 3BNU 22:05
PROVIDERS: ADMIT Pediatrics; ATTEND Internal Medicine

== ENCOUNTER 2020-04-18 22:12 | Observation (INO) ==
[2020-04-18 23:09] LABS: Basophils % 0.3 %; Eosinophils # 0.2 K/mcL (0.0-0.6); Eosinophils % 2.5 %; Hematocrit 36.7 % (35.3-44.9); Hemoglobin 12.6 g/dL (11.5-15.4); Immature Granulocytes % 0.3 % (0-4); Lymphocytes # 1.8 K/mcL (0.6-4.6); Lymphocytes % 18.8 %; Mean Corpuscular HGB Conc 34.3 g/dL (31.6-35.5); Mean Corpuscular Hemoglobin 30.9 pg (28.0-33.3); Mean Platelet Volume 8.8 fL (9.4-12.4); Monocytes # 0.9 K/mcL (0.0-1.3); Monocytes % 9.2 %; Neutrophils # 6.4 K/mcL (1.6-8.9); Platelet Count 234 K/mcL (140-400); Red Blood Count 4.08 M/mcL (3.82-4.97); Red Cell Distribution Width 12.7 % (11.5-14.5); Segmented Neutrophils % 68.9 %; White Blood Count 9.3 K/mcL (4.3-11.1)
[2020-04-18 23:30] LABS: BUN/Creatinine Ratio 21 (6-26); Blood Urea Nitrogen 17 mg/dL (8-23); Calcium 10.2 mg/dL (8.6-10.3); Carbon Dioxide 23 mEq/L (23-29); Chloride 103 mEq/L (98-107); Glucose 122 mg/dL (70-105); Osmolality,Calculated 287 (280-300); Potassium 3.2 mEq/L (3.5-5.1); Sodium 137 mEq/L (136-145); eGFR For African Americans > 60 (> 60); eGFR For Non-African Americans > 60 (> 60)
[2020-04-18 23:31] LABS: Troponin I < 0.03 ng/mL (< 0.04)
[2020-04-19] MEDS ORDERED: Aspirin 81 MG TAB.CHEW PO STA (00:26)
[2020-04-19] MEDS ORDERED: Potassium Chloride Elixir 20 MEQ/15 ML UDC PO ONE (00:34)
[2020-04-19 01:01] LABS: Adenovirus Not Detected (Not Detect); Coronavirus 229E Not Detected (Not Detect); Coronavirus HKU1 Not Detected (Not Detect); Coronavirus NL63 Not Detected (Not Detect); Coronavirus OC43 Not Detected (Not Detect); Human Metapneumovirus Not Detected (Not Detect); SARS-CoV-2 Not Detected (Not Detect)
[2020-04-19 01:02] LABS: Bordetella Pertussis Not Detected (Not Detect); Chlamydophila pneumoniae Not Detected (Not Detect); Human Rhinovirus/Enterovirus Not Detected (Not Detect); Influenza A Subtype 2009 H1 Not Detected (Not Detect); Influenza B Not Detected (Not Detect); Mycoplasma pneumoniae Not Detected (Not Detect); Parainfluenza Virus 1 Not Detected (Not Detect); Parainfluenza Virus 2 Not Detected (Not Detect); Parainfluenza Virus 3 Not Detected (Not Detect); Parainfluenza Virus 4 Not Detected (Not Detect); Respiratory Syncytial Virus Not Detected (Not Detect)
[2020-04-19] MEDS ORDERED: Potassium Effervescent 25 MEQ TABLET.EFF PO ONE (01:22)
[2020-04-19] MEDS ORDERED: Naloxone 0.4 MG/ML INJ IVP PRN (02:13)
[2020-04-19 02:51] LABS: Bacteria,Urine Few per hpf (None-Few); Bilirubin,Urine Negative (Negative); Blood,Urine Negative (Negative); Clarity,Urine Clear (Clear); Color,Urine Yellow (Yellow); Glucose,Urine (UA) Normal (Normal); Hyaline Casts,Urine Few per lpf (None Seen); Ketones,Urine Negative (Negative); Leukocyte Esterase,Urine Large (Negative); Nitrite,Urine Negative (Negative); Protein,Urine Negative (Neg-Trace); RBC,Urine 0-3 per hpf (0-3); Specific Gravity,Urine 1.018 (1.010-1.025); Squamous Epithelial Cell,Urine Few per hpf (None-Few); WBC,Urine TNTC per hpf (0-3)
[2020-04-19 02:52] LABS: Transitional Epi Cells,Urine Few per hpf (None-Few)
[2020-04-19] MEDS ORDERED: cefTRIAXone 1,000 MG in Water for inj. (sterile) 10 ML IVP ONE (03:00)
[2020-04-19] MEDS ORDERED: 0.9 % Sodium Chloride 1,000 ML IVC ONE (03:20)
[2020-04-19 05:57] LABS: Hemoglobin 12.9 g/dL (11.5-15.4); Mean Corpuscular HGB Conc 33.1 g/dL (31.6-35.5); Mean Corpuscular Hemoglobin 31.2 pg (28.0-33.3); Mean Corpuscular Volume 94.4 fL (83.0-100.0); Mean Platelet Volume 9.3 fL (9.4-12.4); Platelet Count 225 K/mcL (140-400); Red Blood Count 4.13 M/mcL (3.82-4.97); Red Cell Distribution Width 13.1 % (11.5-14.5); White Blood Count 8.5 K/mcL (4.3-11.1)
[2020-04-19 06:19] LABS: Alanine Aminotransferase 9 Units/L (7-52); Albumin/Globulin Ratio 1.5 (1.1-2.2); Alkaline Phosphatase 59 Units/L (34-104); Aspartate Amino Transferase 11 Units/L (13-39); BUN/Creatinine Ratio 20 (6-26); Bilirubin,Total 0.4 mg/dL (0.3-1.0); Blood Urea Nitrogen 17 mg/dL (8-23); Calcium 9.9 mg/dL (8.6-10.3); Carbon Dioxide 27 mEq/L (23-29); Chloride 103 mEq/L (98-107); Globulin 2.6 g/dL (2.4-3.5); Glucose 99 mg/dL (70-105); Magnesium 1.9 mg/dL (1.6-2.6); Osmolality,Calculated 288 (280-300); Phosphorous 3.6 mg/dL (2.7-4.5); Potassium 4.5 mEq/L (3.5-5.1); Sodium 138 mEq/L (136-145); Total Protein 6.6 g/dL (6.4-8.9); Troponin I < 0.03 ng/mL (< 0.04); eGFR For African Americans > 60 (> 60); eGFR For Non-African Americans > 60 (> 60)
[2020-04-19] MEDS: *HR* Heparin 5,000 UNIT/ML VIAL SQ SCH ×2 (06:35→17:16)
[2020-04-19] MEDS ORDERED: cefTRIAXone 1,000 MG in Water for inj. (sterile) 10 ML IVP SCH (09:00)
[2020-04-19] MEDS: Aspirin Enteric Coated 81 MG Tablet PO SCH (09:22)
[2020-04-19] MEDS: Ranolazine 500 MG TAB.ER.12H PO SCH ×2 (09:22→20:40)
[2020-04-19] MEDS: *HR* Ticagrelor 90 MG TABLET PO SCH ×2 (09:22→20:40)
[2020-04-19] MEDS: Venlafaxine XR (24 HR) 150 MG CAP.ER.24H PO SCH (09:22)
[2020-04-19] MEDS: ALPRAZolam 1 MG TABLET PO PRN (17:17)
[2020-04-19] MEDS: Cyanocobalamin (B-12) 1,000 MCG TABLET PO SCH (17:17)
[2020-04-19] MEDS: Cholecalciferol (D-3) 1,000 UNIT (25MCG) TABLET PO SCH (17:17)
[2020-04-19 17:47] LABS: Amphetamine Screen,Urine Negative ng/mL (Cutoff=1000); Barbiturate Screen,Urine Negative ng/mL (Cutoff=200); Benzodiazepines Screen,Urine Positive ng/mL (Cutoff=200); Cannabinoid Screen,Urine Negative ng/mL (Cutoff = 50); Cocaine Screen,Urine Negative ng/mL (Cutoff= 300); Opiate Screen,Urine Negative ng/mL (Cutoff=300); Phencyclidine Screen,Urine Negative ng/mL (Cutoff=25)
[2020-04-19] MEDS: Metoprolol XL (24 HR) Succ 50 MG TAB.ER.24H PO SCH (20:40)
[2020-04-19] MEDS ORDERED: traZODone 50 MG TABLET PO SCH (21:00)
[2020-04-20] MEDS: *HR* Heparin 5,000 UNIT/ML VIAL SQ SCH (06:13)
[2020-04-20 07:16] VITALS: BP 184/86
[2020-04-20] MEDS: ALPRAZolam 1 MG TABLET PO PRN (07:54)
[2020-04-20] MEDS: Venlafaxine XR (24 HR) 150 MG CAP.ER.24H PO SCH (07:55)
[2020-04-20] MEDS: *HR* Ticagrelor 90 MG TABLET PO SCH (07:55)
[2020-04-20] MEDS: Metoprolol XL (24 HR) Succ 50 MG TAB.ER.24H PO SCH (07:55)
[2020-04-20] MEDS: Cholecalciferol (D-3) 1,000 UNIT (25MCG) TABLET PO SCH (07:55)
[2020-04-20] MEDS: Cyanocobalamin (B-12) 1,000 MCG TABLET PO SCH (07:55)
[2020-04-20] MEDS: Ranolazine 500 MG TAB.ER.12H PO SCH (07:55)
[2020-04-20] MEDS: Aspirin Enteric Coated 81 MG Tablet PO SCH (07:55)
[2020-04-20] MEDS ORDERED: Cefdinir 300 MG CAPSULE PO SCH (09:00)
[2020-04-20] MEDS ORDERED: Losartan/HCTZ 50-12.5 TABLET PO SCH (09:00)
== END 2020-04-20 11:21 | disposition home or self-care (01) ==
LOC: 3NENU 22:12 → EMEROOARM 22:12 → SUATTDRO 04-19 01:12 → 3NENU 04-19 01:50 → CDU 04-19 12:49 → 3ANU 04-19 14:58
PROVIDERS: ADMIT Internal Medicine; ATTEND Internal Medicine

== ENCOUNTER 2020-07-17 18:48 | Inpatient (IN) ==
[2020-07-17] MEDS ORDERED: Isovue-370 500 ML BOTTLE IVP ONE (19:04)
[2020-07-17 19:20] LABS: Basophils % 0.4 %; Eosinophils # 0.2 K/mcL (0.0-0.6); Eosinophils % 2.3 %; Hematocrit 40.8 % (35.3-44.9); Hemoglobin 13.6 g/dL (11.5-15.4); Immature Granulocytes % 0.5 % (0-4); Lymphocytes # 1.8 K/mcL (0.6-4.6); Lymphocytes % 21.3 %; Mean Corpuscular HGB Conc 33.3 g/dL (31.6-35.5); Mean Corpuscular Hemoglobin 31.1 pg (28.0-33.3); Mean Corpuscular Volume 93.4 fL (83.0-100.0); Mean Platelet Volume 9.3 fL (9.4-12.4); Monocytes # 0.6 K/mcL (0.0-1.3); Neutrophils # 5.7 K/mcL (1.6-8.9); Platelet Count 243 K/mcL (140-400); Red Blood Count 4.37 M/mcL (3.82-4.97); Red Cell Distribution Width 13.3 % (11.5-14.5); Segmented Neutrophils % 68.5 %; White Blood Count 8.4 K/mcL (4.3-11.1)
[2020-07-17 19:42] LABS: Alanine Aminotransferase 10 Units/L (7-52); Albumin 4.2 g/dL (3.5-5.7); Albumin/Globulin Ratio 1.4 (1.1-2.2); Alkaline Phosphatase 70 Units/L (34-104); Aspartate Amino Transferase 13 Units/L (13-39); BUN/Creatinine Ratio 26 (6-26); Bilirubin,Total 0.8 mg/dL (0.3-1.0); Blood Urea Nitrogen 23 mg/dL (8-23); Calcium 9.8 mg/dL (8.6-10.3); Carbon Dioxide 24 mEq/L (23-29); Chloride 100 mEq/L (98-107); Globulin 3.1 g/dL (2.4-3.5); Glucose 145 mg/dL (70-105); Osmolality,Calculated 288 (280-300); Potassium 3.2 mEq/L (3.5-5.1); Sodium 136 mEq/L (136-145); Total Protein 7.3 g/dL (6.4-8.9); eGFR For African Americans > 60 (> 60); eGFR For Non-African Americans > 60 (> 60)
[2020-07-17 19:43] LABS: Troponin I < 0.03 ng/mL (< 0.04)
[2020-07-17] MEDS ORDERED: Morphine Sulfate 2 MG/ML SYRINGE IVP ONE (19:47)
[2020-07-17] MEDS ORDERED: Potassium Chloride Elixir 20 MEQ/15 ML UDC PO ONE (22:04)
[2020-07-17] MEDS ORDERED: Aspirin 325 MG TABLET PO ONE (22:04)
[2020-07-17] MEDS: Nitroglycerin 0.4 MG TAB.SUBL SL PRN (23:26)
[2020-07-18] MEDS: Nitroglycerin 0.4 MG TAB.SUBL SL PRN (00:12)
[2020-07-18] MEDS ORDERED: Perflutren Lipid Microsphere 1.3 ML in 0.9 % Sodium Chloride 8.7 ML IVP PRN (00:34)
[2020-07-18] MEDS ORDERED: Pantoprazole 40 MG VIAL IVP ONE (00:39)
[2020-07-18] MEDS ORDERED: traZODone 50 MG TABLET PO ONE (00:54)
[2020-07-18] MEDS ORDERED: Acetaminophen 325 MG TABLET PO PRN (00:58)
[2020-07-18] MEDS ORDERED: Naloxone 0.4 MG/ML INJ IVP PRN (00:58)
[2020-07-18] MEDS ORDERED: Ondansetron 4 MG/2 ML VIAL IVP PRN (00:58)
[2020-07-18] MEDS ORDERED: *HR* Ticagrelor 90 MG TABLET PO ONE (01:06)
[2020-07-18 02:20] LABS: Hematocrit 39.1 % (35.3-44.9); Hemoglobin 12.9 g/dL (11.5-15.4); Mean Corpuscular Hemoglobin 31.1 pg (28.0-33.3); Mean Corpuscular Volume 94.2 fL (83.0-100.0); Mean Platelet Volume 9.4 fL (9.4-12.4); Platelet Count 229 K/mcL (140-400); Red Blood Count 4.15 M/mcL (3.82-4.97); Red Cell Distribution Width 13.5 % (11.5-14.5)
[2020-07-18] MEDS ORDERED: Dextrose Gel 15 GM/37.5 ML TUBE PO PRN ×2 (02:31)
[2020-07-18] MEDS ORDERED: D5% in Water 1,000 ML IVC PRN (02:31)
[2020-07-18] MEDS ORDERED: *HR* Dextrose 50 % in Water (Vial) 50 ML VIAL IVP PRN (02:31)
[2020-07-18 02:41] LABS: BUN/Creatinine Ratio 22 (6-26); Blood Urea Nitrogen 21 mg/dL (8-23); Calcium 9.4 mg/dL (8.6-10.3); Carbon Dioxide 27 mEq/L (23-29); Chloride 100 mEq/L (98-107); Chol/HDL Ratio 3.6 (0-4.9); Cholesterol 159 mg/dL (< 200); Glucose 142 mg/dL (70-105); HDL Cholesterol 44 mg/dL (40-59); LDL Cholesterol,Calculated 75 mg/dL (< 100); Magnesium 2.3 mg/dL (1.6-2.6); Osmolality,Calculated 287 (280-300); Phosphorous 3.2 mg/dL (2.7-4.5); Potassium 4.1 mEq/L (3.5-5.1); Sodium 136 mEq/L (136-145); Triglycerides 199 mg/dL (< 150); eGFR For African Americans > 60 (> 60); eGFR For Non-African Americans 57 (> 60)
[2020-07-18 02:59] LABS: Thyroid Stimulating Hormone 4.334 mcIU/mL (0.340-5.600)
[2020-07-18] MEDS: *HR* Heparin 5,000 UNIT/ML VIAL SQ SCH ×2 (06:01→13:44)
[2020-07-18] MEDS: Insulin LISPRO 300 UNITS/3 ML VIAL SQ SCH ×6 (06:07→20:40)
[2020-07-18 06:58] LABS: Estimated Average Glucose 114 mg/dl
[2020-07-18] MEDS ORDERED: Regadenoson 0.4 MG/5 ML SYRINGE IVP ONE ×2 (07:03→10:23)
[2020-07-18] MEDS ORDERED: Insulin LISPRO 300 UNITS/3 ML VIAL SQ SCH ×2 (07:30→21:00)
[2020-07-18] MEDS: Aspirin Enteric Coated 81 MG Tablet PO SCH (08:57)
[2020-07-18] MEDS: ALPRAZolam 1 MG TABLET PO PRN (13:45)
[2020-07-18] MEDS ORDERED: hydrOXYzine pamoate 25 MG CAPSULE PO PRN (15:00)
[2020-07-18] MEDS ORDERED: *HR* Enoxaparin 80 MG/0.8 ML SYRINGE SQ ONE (17:06)
[2020-07-18] MEDS: Ranolazine 500 MG TAB.ER.12H PO SCH (20:38)
[2020-07-18] MEDS: traZODone 50 MG TABLET PO SCH (20:39)
[2020-07-18] MEDS: Metoprolol XL (24 HR) Succ 50 MG TAB.ER.24H PO SCH (20:39)
[2020-07-18] MEDS: *HR* Ticagrelor 90 MG TABLET PO SCH (20:39)
[2020-07-19 03:47] LABS: BUN/Creatinine Ratio 26 (6-26); Blood Urea Nitrogen 23 mg/dL (8-23); Calcium 9.6 mg/dL (8.6-10.3); Carbon Dioxide 27 mEq/L (23-29); Chloride 106 mEq/L (98-107); Glucose 127 mg/dL (70-105); Osmolality,Calculated 293 (280-300); Potassium 3.7 mEq/L (3.5-5.1); Sodium 139 mEq/L (136-145); eGFR For African Americans > 60 (> 60); eGFR For Non-African Americans > 60 (> 60)
[2020-07-19 03:52] LABS: Basophils % 0.6 %; Eosinophils # 0.2 K/mcL (0.0-0.6); Eosinophils % 3.2 %; Hematocrit 36.7 % (35.3-44.9); Hemoglobin 11.9 g/dL (11.5-15.4); Immature Granulocytes % 0.6 % (0-4); Lymphocytes # 1.7 K/mcL (0.6-4.6); Lymphocytes % 23.7 %; Mean Corpuscular HGB Conc 32.4 g/dL (31.6-35.5); Mean Corpuscular Hemoglobin 30.7 pg (28.0-33.3); Mean Corpuscular Volume 94.8 fL (83.0-100.0); Mean Platelet Volume 9.4 fL (9.4-12.4); Monocytes # 0.8 K/mcL (0.0-1.3); Neutrophils # 4.4 K/mcL (1.6-8.9); Platelet Count 206 K/mcL (140-400); Red Blood Count 3.87 M/mcL (3.82-4.97); Red Cell Distribution Width 13.4 % (11.5-14.5); Segmented Neutrophils % 60.9 %; White Blood Count 7.2 K/mcL (4.3-11.1)
[2020-07-19] MEDS: Insulin LISPRO 300 UNITS/3 ML VIAL SQ SCH ×4 (09:11→20:58)
[2020-07-19] MEDS: *HR* Ticagrelor 90 MG TABLET PO SCH ×2 (09:23→14:10)
[2020-07-19] MEDS: Aspirin Enteric Coated 81 MG Tablet PO SCH (09:45)
[2020-07-19] MEDS: Isosorbide MONOnitrate (24 HR) 60 MG TAB.ER.24H PO SCH (09:45)
[2020-07-19] MEDS: Cholecalciferol (D-3) 1,000 UNIT (25MCG) TABLET PO SCH (09:46)
[2020-07-19] MEDS: Cyanocobalamin (B-12) 1,000 MCG TABLET PO SCH (09:46)
[2020-07-19] MEDS: Losartan/HCTZ 50-12.5 TABLET PO SCH (09:46)
[2020-07-19] MEDS: Ranolazine 500 MG TAB.ER.12H PO SCH ×2 (09:46→21:04)
[2020-07-19] MEDS: Venlafaxine XR (24 HR) 150 MG CAP.ER.24H PO SCH (09:46)
[2020-07-19] MEDS: Metoprolol XL (24 HR) Succ 50 MG TAB.ER.24H PO SCH ×2 (09:46→21:06)
[2020-07-19] MEDS: ALPRAZolam 1 MG TABLET PO PRN (09:54)
[2020-07-19] MEDS ORDERED: ISOVUE-370 200 ML INFUS..BTL ONE (14:26)
[2020-07-19] MEDS ORDERED: 0.9 % Sodium Chloride 2,000 ML ONE (14:26)
[2020-07-19] MEDS ORDERED: Nitroglycerin 1,000 MCG/10 ML VIAL IV ONE (14:26)
[2020-07-19] MEDS ORDERED: *HR* Heparin 10,000 UNIT/10 ML VIAL ONE (14:26)
[2020-07-19] MEDS ORDERED: Heparin 1,000 UNITS/500 mL 500 ML ONE (14:26)
[2020-07-19] MEDS ORDERED: *HR* FentaNYL (PF) 100 MCG/2 ML VIAL ONE (14:34)
[2020-07-19] MEDS ORDERED: *HR* Midazolam HCl 2 MG/2 ML VIAL ONE (14:34)
[2020-07-19] MEDS ORDERED: Tirofiban 12.5 MG/250ML 12.5 MG/250 ML BAG ONE (15:35)
[2020-07-19] MEDS ORDERED: D5% in Water 250 ML ONE (15:35)
[2020-07-19] MEDS ORDERED: *HR* Nitroprusside 50 MG VIAL IVC ONE (15:35)
[2020-07-19] MEDS ORDERED: Tirofiban 12.5 MG/250ML 12.5 MG/250 ML BAG IVC SCH (16:15)
[2020-07-19] MEDS: traZODone 50 MG TABLET PO SCH (21:06)
[2020-07-20 07:20] VITALS: BP 132/76
[2020-07-20 08:17] LABS: Hematocrit 39.3 % (35.3-44.9); Hemoglobin 12.7 g/dL (11.5-15.4); Mean Corpuscular HGB Conc 32.3 g/dL (31.6-35.5); Mean Corpuscular Hemoglobin 31.7 pg (28.0-33.3); Mean Platelet Volume 9.2 fL (9.4-12.4); Platelet Count 217 K/mcL (140-400); Red Blood Count 4.01 M/mcL (3.82-4.97); Red Cell Distribution Width 13.5 % (11.5-14.5); White Blood Count 8.9 K/mcL (4.3-11.1)
[2020-07-20 08:34] LABS: BUN/Creatinine Ratio 23 (6-26); Blood Urea Nitrogen 18 mg/dL (8-23); Calcium 9.6 mg/dL (8.6-10.3); Carbon Dioxide 26 mEq/L (23-29); Chloride 107 mEq/L (98-107); Glucose 112 mg/dL (70-105); Magnesium 2.1 mg/dL (1.6-2.6); Osmolality,Calculated 291 (280-300); Phosphorous 3.3 mg/dL (2.7-4.5); Potassium 3.9 mEq/L (3.5-5.1); Sodium 139 mEq/L (136-145); eGFR For African Americans > 60 (> 60); eGFR For Non-African Americans > 60 (> 60)
[2020-07-20] MEDS: Venlafaxine XR (24 HR) 150 MG CAP.ER.24H PO SCH (09:08)
[2020-07-20] MEDS: Cholecalciferol (D-3) 1,000 UNIT (25MCG) TABLET PO SCH (09:08)
[2020-07-20] MEDS: Metoprolol XL (24 HR) Succ 50 MG TAB.ER.24H PO SCH (09:08)
[2020-07-20] MEDS: Losartan/HCTZ 50-12.5 TABLET PO SCH (09:09)
[2020-07-20] MEDS: *HR* Ticagrelor 90 MG TABLET PO SCH (09:10)
[2020-07-20] MEDS: Isosorbide MONOnitrate (24 HR) 60 MG TAB.ER.24H PO SCH (09:11)
[2020-07-20] MEDS: Aspirin Enteric Coated 81 MG Tablet PO SCH (09:11)
[2020-07-20] MEDS: Insulin LISPRO 300 UNITS/3 ML VIAL SQ SCH ×2 (09:11→11:55)
[2020-07-20] MEDS: Cyanocobalamin (B-12) 1,000 MCG TABLET PO SCH (09:29)
[2020-07-20] MEDS: Ranolazine 500 MG TAB.ER.12H PO SCH (09:29)
[2020-07-20] MEDS: ALPRAZolam 1 MG TABLET PO PRN (09:40)
== END 2020-07-20 12:00 | disposition home or self-care (01) | DRG 247 ==
LOC: 3BNU 18:48 → EMEROOARM 18:48 → SUATTDRO 22:11 → 3BNU 22:58
PROVIDERS: ADMIT Internal Medicine; ATTEND Internal Medicine